=== PATIENT | male | born 1980 | race Caucasian/White ===

== ENCOUNTER 2020-12-16 22:27 | Emergency (ER) | payer BC, SELFPAY ==
[2020-12-16 22:32] VITALS: BP 130/86; PULSE 80; O2SAT 98
[2020-12-16 22:41] VITALS: BP 119/79; PULSE 77; RESP 17; TEMP 36.8; O2SAT 93; BMI 24.3
--- NOTE | 2020-12-16 22:49 | ED.PSYCH ---
HPI - Psych General Chief Complaint: Psychiatric Symptoms Stated Complaint: crisis,si Source: patient and EMS Mode of arrival: EMS Limitations: no limitations History of Present Illness HPI Narrative: 40-year-old male with no significant past medical history presents via EMS for a suicidal statement. Patient was arguing with his girlfriend, had some alcohol earlier today, made this statement that he wanted to shoot himself. Girlfriend called 911. Patient does not report any other symptoms at this time. Patient denies chest pain or pressure, palpitations, shortness of breath, abdominal pain, abdominal distention, dysuria, hematuria, nausea, vomiting, diarrhea, constipation, fevers and chills. He denies suicidal ideation, homicidal ideation, auditory visual hallucinations, and substance abuse. MD complaint: suicidal ideation Onset (ago): hour(s) (Within the hour of arrival) History of same: No Exacerbating factors: alcohol Context: significant life stressor Associated psychiatric symptoms: none Associated symptoms: denies other symptoms Treatments prior to arrival: none Related Data Allergies Allergy/AdvReac Type Severity Reaction Status Date / Time No Known Allergies Allergy Verified 12/16/20 22:50 Review of Systems Review of Systems: Constitutional: No Fever, No Chills ENT/Mouth: No Ear Pain, No Nasal Congestion, No sore throat Eyes: No Eye Pain, No Swelling, No Redness Cardiovascular: No Chest Pain, No SOB Respiratory: No Cough, No Sputum, No Dyspnea Gastrointestinal: No Nausea, No Vomiting, No Diarrhea, No Hematochezia, No Melena Genitourinary: No Dysuria, No Urinary Frequency, No Hematuria Musculoskeletal: No Myalgias Skin: No Skin Lesions, No rash Neuro: No Weakness, No Numbness, No Paresthesias, No Dizziness, No Headache Psych: Positive suicidal statement, no Anxiety, no Depression, no SI/HI Heme/Lymph: No Lymphadenopathy Endocrine: No Polyuria, No Polydipsia Yes all other systems are reviewed and are negative PMFSH Past Medical History Attestation statement: The following information was validated with the patient. Source: old records reviewed Social History Social History Advance Directives: No Physical Exam Vital Signs: Vital Signs: Last Vital Signs Temp 98.2 F 12/16/20 23:00 Pulse 77 12/16/20 23:00 Resp 17 08/06/21 23:00 BP 119/79 12/16/20 23:00 Pulse Ox 93 12/16/20 23:00 Body Mass Index 24.3 Appearance: Alert. Oriented X3. No acute distress. Eyes: Pupils equal, round and reactive to light. ENT: Pharynx normal. Neck: Normal inspection. Neck supple. CVS: Normal heart rate and rhythm. Pulses normal. Respiratory: No respiratory distress. Breath sounds normal. Abdomen: Soft and nontender. Skin: Skin warm and dry. Normal skin color. Normal skin turgor. Extremities: No lower extremity edema. Neuro: No motor deficit. No sensory deficit. Cranial nerves 2-12 intact. Course Course Course Narrative: 40-year-old male presents via EMS for suicidal statement. Patient stated he wanted to shoot himself after an argument with his girlfriend. Girlfriend called 911. He does not have any prior psychiatric admissions. States have drank 4 beers today. Does not report any illicit drug use or physical complaints at this time. Patient is alert oriented x4, calm, cooperative, answering questions politely and appropriately. Patient stated that he feels like this was a statement made and anger and in haste, he denies suicidal ideation or homicidal ideation. Will order crisis evaluation. 11:45 p.m. referral to partial outpatient program on Saturday. N consult completed. Plan of care is to discharge home which I agree with this plan. Patient verbalized understanding of and agrees to plan of care discharge home. MDM - Psych Differential Diagnosis Differential diagnosis: Likely suicidal ideation, depression, acute anxiety and alcohol intoxication Medical Records Attestation: I reviewed the patient's medical records. Discharge Plan Discharge Clinical Impression: Acute anxiety, Depression Patient Disposition: Home, Self-Care Instructions: Depression (ED), Anxiety (ED) Additional Instructions: Please follow-up with outpatient program on Saturday. Thank you for choosing this emergency department for evaluation. Please follow-up with primary care physician as needed. Return to the emergency department for any new, concerning, or worsening symptoms. Interventions: ED Discharge Assessment Last Done: 12/17/20 00:08 Discharge Date/Time: 12/17/20 00:12
[2020-12-16 23:00] VITALS: BP 119/79; PULSE 77; RESP 17; TEMP 36.8; O2SAT 93
--- NOTE | 2020-12-16 23:17 | PC.NURSE ---
care team present and is meeting with the pt. Pt seen by provider.
--- NOTE | 2020-12-16 23:44 | PC.NURSE ---
pt sleeping in the recliner and has been seen by care team waiting dispo
--- NOTE | 2020-12-17 00:23 | MHC.CARE ---
Pt presented to ED via EMS due to him and girlfriend getting into an altercation, ETOH use and reporting a suicidal gesture in the context of anger. Pt reports she called the police and was brought here. Pt reports that he stated I will shoot myself with a gun out of anger and both girlfriend and pt confirm he does not have a gun or access to one. Pt's girlfriend reports that they have been together 20 years have 4 children together and he has been more angry than usual . 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 She reports he has been on an antidepressant for several years and doesn't feel it is working any longer. She reports she believes he is minimizing his MH and has been putting off therapy. She states he is up and down, angry and always mad . He reportedly makes threats to kill him self on and off but has no history of attempts. Pt has been eating irregularly and sleeping much more. He denies SI/HI, AH/VH. Denies having any current providers however verbalizes interest in obtaining one and states it has been difficult locating one. Pt states he has been struggling with his anger and does make threats out of anger and frustration. Pt verbalized interest in PHP and T/W will make a referral for him in hopes that he can receive treatment prior to returning back to work in a couple of weeks.
== END 2020-12-17 00:12 | disposition home or self-care (01) ==
PROVIDERS: Emergency Provider Emergency Medicine
DX: F41.9 Anxiety disorder, unspecified (principal); F32.9 Major depressive disorder, single episode, unspecified
CPT/HCPCS: 99284